=== PATIENT | female | born 2000 | race Caucasian/White ===

== ENCOUNTER 2022-03-08 21:18 | Emergency (ER) | payer OTHER ==
[2022-03-08] MEDS ORDERED: Ondansetron ODT 4 MG TAB ONE (22:41)
== END 2022-03-08 22:50 | disposition short-term general hospital (02) ==
LOC: CSHERS 21:18 → EEVIPCON 21:18 → CSHERS 22:50
DX: T74.21XA Adult sexual abuse, confirmed, initial encounter (principal)
CPT/HCPCS: 99285; Q0162